=== PATIENT | male | born 1965 | race Caucasian/White ===

== ENCOUNTER 2018-10-12 05:58 | Day surgery (SDC) | payer OTHER ==
[~2018-10-12] VITALS: Ht 170.2 cm; Wt 65.5 kg
[2018-10-12 07:07] VITALS: Ht 170.2 cm; Wt 65.5 kg
[2018-10-12] MEDS ORDERED: PAIN MEDS (07:12)
[2018-10-12 07:24] VITALS: BP 105/72; PULSE 46; RESP 20
[2018-10-12] MEDS ORDERED: FENTAnyl 50 MCG/ML VIAL ONE (09:01)
[2018-10-12] MEDS ORDERED: MIDAZOLAM 1 MG/ML 2 ML INJ ONE ×2 (09:01)
[2018-10-12 09:23] VITALS: BP 99/62; PULSE 48; RESP 20
== END 2018-10-12 11:07 | disposition home or self-care (01) ==
LOC: GIL 05:58
PROVIDERS: ATTEND Internal Medicine Gastroenterology
DX: Z12.11 Encounter for screening for malignant neoplasm of colon (principal); D12.5 Benign neoplasm of sigmoid colon; K64.8 Other hemorrhoids
CPT/HCPCS: 45380; 88305; J2250; J3010